=== PATIENT | female | born 1970 | race Caucasian/White ===

== ENCOUNTER 2017-11-15 04:36 | Emergency (ER) | payer SELFPAY ==
[2017-11-15] MEDS ORDERED: Acetaminophen/oxyCODONE 325-5 MG Tab PO ONE (04:37)
--- NOTE | 2017-11-15 05:35 | EDM.PDOC ---
ED HPI GENERAL MEDICAL PROBLEM - General Chief Complaint: Lower Extremity Injury/Pain Stated Complaint: INJURED L FOOT [id number] Time Seen by Provider: 11/15/17 05:00 Source of Information: Reports: Patient, RN, RN Notes Reviewed History Limitations: Reports: No Limitations - History of Present Illness INITIAL COMMENTS - FREE TEXT/NARRATIVE: Pt presents to the ER with c/o left ankle/foot pain. She states last night about 9-10pm she stood up out of a chair and her ankle went one way and her body went another. She states she has tried to take ibuprofen and rest but the pain has been too intense. 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 [No Known Home Meds] 11/15/17 [History] Past Medical History Cardiovascular History: Reports: Other (See Below) Other Cardiovascular History: Has valve problems. 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 ED EXAM, GENERAL - Physical Exam Exam: See Below Exam Limited By: No Limitations General Appearance: Alert, WD/WN, Mild Distress Eye Exam: Bilateral Eye: EOMI, Normal Inspection, PERRL Ears: Normal External Exam Nose: Normal Inspection Throat/Mouth: Normal Inspection, Normal Voice, No Airway Compromise Head: Atraumatic, Normocephalic Neck: Normal Inspection, Supple, Non-Tender, Full Range of Motion Respiratory/Chest: No Respiratory Distress, Lungs Clear, Normal Breath Sounds, No Accessory Muscle Use, Chest Non-Tender Cardiovascular: Normal Peripheral Pulses Peripheral Pulses: 2+: Radial (L), Radial (R), Dorsalis Pedis (L), Dorsalis Pedis (R) GI/Abdominal: Normal Bowel Sounds, Soft, Non-Tender, No Organomegaly, No Distention, No Abnormal Bruit, No Mass (Female) Exam: Deferred Rectal (Female) Exam: Deferred Back Exam: Normal Inspection, Full Range of Motion, NT Extremities: Normal Inspection, Normal Range of Motion, No Pedal Edema, Normal Capillary Refill, Joint Swelling (left ankle), Limited Range of Motion (left ankle/foot) Neurological: Alert, Oriented, CN II-XII Intact, Normal Cognition, Normal Gait, Normal Reflexes, No Motor/Sensory Deficits Psychiatric: Normal Affect, Normal Mood Skin Exam: Warm, Dry, Intact, Normal Color, No Rash Lymphatic: No Adenopathy ED TRAUMA EXTREMITY PROCEDURES - Splinting Left Lower Extremity Splint Site: left ankle Pre-Procedure NV Status: Normal Post-Procedure NV Status: Normal Splint Material: Air Splint Applied & Form Fitted By: Provider, Nurse Provider Post-Splint Application NV Check: NV Status Normal, Good Position Complications: No Course - Vital Signs Last Recorded V/S: Last Vital Signs Temp 97.4 F 11/15/17 04:42 Pulse 80 11/15/17 04:42 Resp 17 11/15/17 04:42 BP 142/90 H 11/15/17 04:42 Pulse Ox 100 11/15/17 04:42 - Orders/Labs/Meds Meds: Medications Discontinued Medications Generic Name Dose Route Start Last Admin Trade Name Frecortez PRN Reason Stop Dose Admin Hydrocodone Bitart/Acetaminophen Confirm 11/15/17 05:39 [place] 325-10 Mg Administered 11/15/17 05:40 Dose 1 tab .ROUTE .STK-MED ONE - Radiology Interpretation Free Text/Narrative:: Left Foot: IMPRESSION: No evidence for fracture or foreign body Prominent heel spur Thank you for allowing us to participate in the care of your patient. Dictated and Authenticated by: Russ Wooten MD 11/15/2017 5:19 AM Central Time ([place] & [place]) Left ankle: IMPRESSION: Normal left ankle x-rays. Thank you for allowing us to participate in the care of your patient. Dictated and Authenticated by: Russ Wooten MD 11/15/2017 5:19 AM Central Time ([place] & [place]) See rad report Departure - Departure Time of Disposition: 05:34 Disposition: Home, Self-Care 01 Condition: Fair Clinical Impression: Sprain of left ankle Qualifiers: Encounter type: initial encounter Involved ligament of ankle: unspecified ligament Qualified Code(s): S93.402A - Sprain of unspecified ligament of left ankle, initial encounter - Discharge Information Instructions: Crutch Use, Adult, [id number], Ankle Sprain, [id number], Pain Medicine Instructions, [id number] Forms: ED Department Discharge Additional Instructions: RX: [place] Elevate and ice as tolerated Use crutches and ankle brace as tolerated until pain is less Follow up with your primary care facility
[2017-11-15] MEDS ORDERED: Acetaminophen/HYDROcodone 325-10 MG Tab ONE (05:39)
[2017-11-15] MEDS ORDERED: Acetaminophen/oxyCODONE 325-5 MG Tab ONE (05:47)
== END 2017-11-15 05:55 | disposition home or self-care (01) ==
LOC: DL.ED 04:36
DX: S93.402A Sprain of unspecified ligament of left ankle, initial encounter (principal); F17.210 Nicotine dependence, cigarettes, uncomplicated; M76.892 Other specified enthesopathies of left lower limb, excluding foot; Z88.0 Allergy status to penicillin; Z88.1 Allergy status to other antibiotic agents; X50.9XXA Other and unspecified overexertion or strenuous movements or postures, initial encounter
CPT/HCPCS: 73610; 73630; 99283; A9270

== ENCOUNTER 2019-09-22 17:20 | Emergency (ER) | payer SELFPAY ==
[2019-09-22] MEDS ORDERED: Acetaminophen/oxyCODONE 325-5 MG Tab PO ONE (17:21)
[2019-09-22] MEDS ORDERED: Clindamycin HCl 150 MG Cap PO ONE (17:21)
[2019-09-22] MEDS ORDERED: Clindamycin Phosphate 900 MG in Sodium Chloride 0.9% 100 ML IV ONE (18:28)
[2019-09-22] MEDS ORDERED: Diphtheria,Pertussis(Acell),Tetanus Vaccine 0.5 ML SDV IM ONE (18:28)
[2019-09-22] MEDS ORDERED: Sodium Chloride 0.9% 10 ML Syringe FLUSH PRN (18:29)
[2019-09-22] MEDS ORDERED: Ondansetron 4 MG/2 ML SDV IVPUSH ONE (18:32)
[2019-09-22] MEDS ORDERED: Lidocaine 1% 30 ML SDV INJECT ONE (18:49)
[2019-09-22] MEDS ORDERED: Lidocaine 1% 30 ML SDV ONE (18:50)
[2019-09-22] MEDS ORDERED: fentaNYL 100 MCG/2 ML SDV IVPUSH ONE (19:12)
--- NOTE | 2019-09-22 19:25 | EDM.PDOC ---
Scribed by Malgorzata Carroll 09/22/19 191 for Micah Helton MD <Micah Helton - Last Filed: 09/22/19 19:13> ED HPI GENERAL MEDICAL PROBLEM - General Chief Complaint: Laceration Stated Complaint: LACERATION LEFT HAND Time Seen by Provider: 09/22/19 18:28 Source of Information: Reports: Patient, RN, RN Notes Reviewed History Limitations: Reports: No Limitations - History of Present Illness INITIAL COMMENTS - FREE TEXT/NARRATIVE: Pt presents to ER from home by POV with c/o a deep cut to the back of the left thumb and inability to extend the thumb. Denies any other injury. Pt was feeding a calf in the barn with a glass bottle with the calf butted the bottle, knocked into something that broke the glass and sliced her thumb. Tetanus not up to date. She is allergic to Penicillin and Zithromax. Onset: Today Duration: Constant, Other Location: Reports: Upper Extremity, Left Quality: Reports: Ache Severity: Moderate Improves with: Reports: None Worsens with: Reports: None Associated Symptoms: Reports: No Other Symptoms Left Finger-Thumb Pain Score (Numeric/FACES): 6 - Related Data Allergies Allergy/AdvReac Type Severity Reaction Status Date / Time azithromycin [From Zithromax] Allergy Tachycardia Verified 09/22/19 17:45 Penicillins Allergy Rash Verified 09/22/19 17:45 Home Meds: Home Meds . [No Known Home Meds] 11/15/17 [History] Past Medical History - Past Health History Medical/Surgical History: Denies Medical/Surgical History Cardiovascular History: Reports: Other (See Below) Other Cardiovascular History: Has valve problems. 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 ED EXAM, SKIN/RASH Exam: See Below Exam Limited By: No Limitations General Appearance: Alert, WD/WN, No Apparent Distress, Anxious Throat/Mouth: Normal Inspection, Normal Lips, Normal Voice, No Airway Compromise Head: Atraumatic, Normocephalic Respiratory/Chest: No Respiratory Distress Cardiovascular: Normal Peripheral Pulses Extremities: Normal Capillary Refill, Other (4cm laceration with extensor tendon lac. to the extensor surface of the left hand/thumb overlying the 1st MC , pt unable to extend the thumb, no FB, bleeding controlled.). No: Joint Swelling Neurological: Alert, Oriented, Normal Cognition, Normal Gait, No Motor/Sensory Deficits Psychiatric: Normal Affect, Anxious Course - Vital Signs Last Recorded V/S: Last Vital Signs Temp 96.8 F 09/22/19 17:41 Pulse 88 09/22/19 17:41 Resp 16 09/22/19 17:41 BP 146/76 H 09/22/19 17:41 Pulse Ox 100 09/22/19 17:41 - Orders/Labs/Meds Orders: Active Orders 24 hr Category Date Time Status Communication Order [RC] STAT Care 09/22/19 19:11 Active Peripheral IV Care [RC] . DIRECTED Care 09/22/19 18:29 Active Vaccines to be Administered [RC] PER UNIT ROUTINE Care 09/22/19 18:28 Active Sodium Chloride 0.9% [Saline Flush] Med 09/22/19 18:29 Active 10 ml FLUSH ASDIRECTED PRN Peripheral IV Insertion Adult [OM.PC] Stat Oth 09/22/19 18:29 Ordered Medication Orders Sodium Chloride (Saline Flush) 10 ml FLUSH ASDIRECTED PRN PRN Reason: Keep Vein Open Last Admin: 09/22/19 18:58 Dose: 10 ml Meds: Medications Generic Name Dose Route Start Last Admin Trade Name Freq PRN Reason Stop Dose Admin Sodium Chloride 10 ml 09/22/19 18:29 09/22/19 18:58 Saline Flush FLUSH 10 ml ASDIRECTED PRN Administration Keep Vein Open Discontinued Medications Generic Name Dose Route Start Last Admin Trade Name Freq PRN Reason Stop Dose Admin Clindamycin HCl Confirm 09/22/19 19:31 Cleocin Administered 09/22/19 19:32 Dose 300 mg .ROUTE .STK-MED ONE Diphtheria/Tetanus/Acell Pertussis 0.5 ml 09/22/19 18:28 09/22/19 18:57 Adacel IM 09/22/19 18:29 0.5 ml .ONCE ONE Administration Fentanyl 50 mcg 09/22/19 19:12 09/22/19 19:22 Sublimaze IVPUSH 09/22/19 19:13 50 mcg ONETIME ONE Administration Clindamycin Phosphate 900 mg/ 106 mls @ 200 mls/hr 09/22/19 18:28 09/22/19 18 :58 Sodium Chloride IV 09/22/19 18:59 200 mls/hr ONETIME ONE Administration Lidocaine HCl 30 ml 09/22/19 18:49 09/22/19 19:01 Xylocaine-Mpf 1% INJECT 09/22/19 18:50 30 ml ONETIME ONE Administration Lidocaine HCl Confirm 09/22/19 18:50 09/22/19 19:01 Xylocaine-Mpf 1% Administered 09/22/19 18:51 Not Given Dose 30 ml .ROUTE .STK-MED ONE Ondansetron HCl 4 mg 09/22/19 18:32 09/22/19 19:01 Zofran IVPUSH 09/22/19 18:33 4 mg ONETIME ONE Administration - Re-Assessments/Exams Free Text/Narrative Re-Assessment/Exam: 09/22/19 19:19 I consulted orthopedic surgeon, Dr. Mckeon via [facility]. Dr. Mckeon advises to irrigate and cleanse the wound, give appropriate antibiotics, Tdap, close the skin, splint the thumb, and have the pt f/u with him in clinic tomorrow, Monday, Sep.23. Wound care performed by Angelica CARTAGENA due to shift change and ER patient volume. Departure - Departure Time of Disposition: 20:00 Disposition: Home, Self-Care 01 Condition: Good Clinical Impression: Laceration of thumb, left, with tendon involvement Qualifiers: Encounter type: initial encounter Qualified Code(s): S61.012A - Laceration without foreign body of left thumb without damage to nail, initial encounter - Discharge Information *PRESCRIPTION DRUG MONITORING PROGRAM REVIEWED*: Not Applicable *COPY OF PRESCRIPTION DRUG MONITORING REPORT IN PATIENT EMBER: Not Applicable Instructions: Laceration Care, Adult, Tendon Repair Forms: ED Department Discharge Additional Instructions: Rx: Clindamycin 300mg 3 times daily x 10 days Call [phone] between 8:00 and 8:30 tomorrow morning to arrange a time to see Dr. Mckeon in at [facility] in [place] tomorrow. ([facility] on [facility]) elevate percocet 5/325 one every 6 hours as needed for severe pain tylenol 650mg every 4 hours as needed mild to moderate pain Sepsis Event Note - Evaluation Sepsis Screening Result: No Definite Risk - Focused Exam Vital Signs: Vital Signs Temp Pulse Resp BP Pulse Ox 09/22/19 17:41 96.8 F 88 16 146/76 H 100 Date Exam was Performed: 09/22/19 Time Exam was Performed: 19:13 - My Orders Last 24 Hours: My Active Orders 09/22/19 19:11 Communication Order [RC] STAT - Assessment/Plan Last 24 Hours: My Active Orders 09/22/19 19:11 Communication Order [RC] STAT <Angelica Bey - Last Filed: 09/22/19 20:31> ED SKIN PROCEDURES - Laceration/Wound Repair Left Proximal Digit - 1st (Thumb) Appearance: Superficial Distal NVT: Neuro & Vascular Intact, Other (tendon involvement) Anesthetic Type: Local Local Anesthesia - Lidocaine (Xylocaine): 1% Plain Local Anesthetic Volume: 5cc Skin Prep: Saline Saline Irrigation (cc's): 2,000 Exploration/Debridement/Repair: Wound Explored Closed with: Sutures Lac/Wound length In cm: 4 Suture Size: 4-0 # of Sutures: 4 Suture Type: Nylon, Interrupted Sterile Dressing Applied: Provider Tetanus Status Addressed: Yes Complications: No - Splinting Left Thumb Post-Procedure NV Status: Normal Splint Material: Velcro Splint Design: Thumb Spica Applied & Form Fitted By: Nurse Provider Post-Splint Application NV Check: NV Status Normal, Good Position Complications: No Departure - Departure Time of Disposition: 20:24 Sepsis Event Note - Focused Exam Date Exam was Performed: 09/22/19 Time Exam was Performed: 20:24 I have read and agree with the documentation that has been completed regarding this visit. By signing this record, I attest that the documentation was completed in my physical presence and is an accurate record of the encounter.
[2019-09-22] MEDS ORDERED: Clindamycin HCl 150 MG Cap ONE (19:31)
[2019-09-22] MEDS ORDERED: Acetaminophen/oxyCODONE 325-5 MG Tab ONE (20:25)
== END 2019-09-22 20:40 | disposition home or self-care (01) ==
LOC: DL.ED 17:20
DX: S66.222A Laceration of extensor muscle, fascia and tendon of left thumb at wrist and hand level, initial encounter (principal); F17.210 Nicotine dependence, cigarettes, uncomplicated; Z23 Encounter for immunization; Z88.0 Allergy status to penicillin; W25.XXXA Contact with sharp glass, initial encounter; Y93.K9 Activity, other involving animal care; Y92.71 Barn as the place of occurrence of the external cause
CPT/HCPCS: 12002; 90471; 90715; 96365; 96375; 99283; A9270; J2001; J2405; J3010; J3490; J7050

== ENCOUNTER 2020-08-22 20:31 | Emergency (ER) | payer MEDICAID ==
[2020-08-22] MEDS ORDERED: Fluconazole 100 MG Tab PO ONE (21:17)
--- NOTE | 2020-08-22 21:24 | EDM.PDOC ---
ED HPI GENERAL MEDICAL PROBLEM - General Chief Complaint: Skin Complaint Stated Complaint: LEFT LEG, SWOLLEN AND BRIGHT BIG BOIL OR SPOT Time Seen by Provider: 08/22/20 21:00 Source of Information: Reports: Patient, RN, RN Notes Reviewed History Limitations: Reports: No Limitations - History of Present Illness INITIAL COMMENTS - FREE TEXT/NARRATIVE: Pt is a 50 year old female who presents to ER with c/o irritating rash to the anterior lower legs bilaterally, as well as small spots forming on the arms. Patient states she has been dealing with the rash on the legs for months. She states she was seen in the clinic and "nothing was done". Patient admits to itching to the areas. Denies fever or chills. Onset: Gradual, Other (months) Treatments ACCESS SPEC: Reports: NSAIDS Left Lower Leg Pain Score (Numeric/FACES): 7 - Related Data Allergies Allergy/AdvReac Type Severity Reaction Status Date / Time azithromycin [From Zithromax] Allergy Tachycardia Verified 08/22/20 20:59 Penicillins Allergy Rash Verified 08/22/20 20:59 Home Meds: Home Meds Levothyroxine 25 mcg PO ACBREAKFAST 08/22/20 [History] Metoprolol Succinate [Toprol XL] 25 mg PO DAILY 08/22/20 [History] Rosuvastatin [Crestor] 5 mg PO DAILY 08/22/20 [History] Past Medical History - Past Health History Medical/Surgical History: Denies Medical/Surgical History Cardiovascular History: Reports: Other (See Below) Other Cardiovascular History: Has valve problems. 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 ED EXAM, SKIN/RASH Exam: See Below Exam Limited By: No Limitations General Appearance: Alert, WD/WN, No Apparent Distress Eye Exam: Bilateral Eye: EOMI, Normal Inspection Ears: Normal External Exam, Hearing Grossly Normal Nose: Normal Inspection Throat/Mouth: Normal Inspection, Normal Voice, No Airway Compromise Head: Atraumatic, Normocephalic Neck: Normal Inspection, Supple, Non-Tender, Full Range of Motion Respiratory/Chest: No Respiratory Distress Cardiovascular: Normal Peripheral Pulses, Regular Rate, Rhythm, No Edema, No Gallop, No JVD, No Murmur, No Rub Peripheral Pulses: 2+: Radial (L), Radial (R), Dorsalis Pedis (L), Dorsalis Pedis (R) GI/Abdominal: Normal Bowel Sounds, Soft, Non-Tender (Female) Exam: Deferred Rectal (Female) Exam: Deferred Back Exam: Normal Inspection, Full Range of Motion, NT Extremities: Redness (area to the left anterior/lateral calf of lef leg, anterior right [place] area, ) Neurological: Alert, Oriented, CN II-XII Intact, Normal Cognition, Normal Gait, Normal Reflexes, No Motor/Sensory Deficits Psychiatric: Normal Affect, Normal Mood Skin: Rash (tinea corporis appearing lesions to the lower legs as well as smaller annular areas to the lower arms bilaterally. Area to the left lower leg hs approximately 20cm x 10cm, scaling, erythematous. Area to the right lower leg has multiple annular appearing areas, with some having dried blood/scabs to the area which the patient states open up and bleed from time to time. Multiple annular lesions to the right and left lower arms. ) Location, Skin: Upper Extremity, Right, Upper Extremity, Left, Lower Extremity, Right, Lower Extremity, Left Characteristics: Other (annular) Associated features: Warmth, Tenderness, Scaling Lymphatic: No Adenopathy Course - Vital Signs Last Recorded V/S: Last Vital Signs Temp 96.9 F 08/22/20 20:37 Pulse 86 08/22/20 20:37 Resp 19 08/22/20 20:37 BP 145/93 H 08/22/20 20:37 Pulse Ox 96 08/22/20 20:37 - Orders/Labs/Meds Meds: Medications Discontinued Medications Generic Name Dose Route Start Last Admin Trade Name Freq PRN Reason Stop Dose Admin Fluconazole 100 mg 08/22/20 21:17 08/22/20 21:23 Diflucan PO 08/22/20 21:18 100 mg ONETIME ONE Administration Departure - Departure Time of Disposition: 21:23 Disposition: Home, Self-Care 01 Condition: Good Clinical Impression: Tinea corporis - Discharge Information *PRESCRIPTION DRUG MONITORING PROGRAM REVIEWED*: No *COPY OF PRESCRIPTION DRUG MONITORING REPORT IN PATIENT EMBER: No Instructions: Body Ringworm, Contact Dermatitis, [id number] Referrals: PCP,None [Primary Care Provider] - Forms: ED Department Discharge Additional Instructions: RX: Fluconizole, Lotrimin Ultra Follow up with your primary care facility if no improvement Sepsis Event Note (ED) - Evaluation Sepsis Screening Result: No Definite Risk - Focused Exam Vital Signs: Vital Signs Temp Pulse Resp BP Pulse Ox 08/22/20 20:37 96.9 F 86 19 145/93 H 96
== END 2020-08-22 21:30 | disposition home or self-care (01) ==
LOC: DL.ED 20:31
DX: B35.4 Tinea corporis (principal); E03.9 Hypothyroidism, unspecified; F17.210 Nicotine dependence, cigarettes, uncomplicated; Z88.1 Allergy status to other antibiotic agents; Z88.0 Allergy status to penicillin; Z79.899 Other long term (current) drug therapy
CPT/HCPCS: 99282; A9270; 99283

== ENCOUNTER 2020-12-18 16:14 | Emergency (ER) | payer MEDICAID ==
[2020-12-18] MEDS ORDERED: Acetaminophen/HYDROcodone 325-5 MG Tab PO ONE (16:15)
[2020-12-18] MEDS ORDERED: Acetaminophen/HYDROcodone 325-10 MG Tab PO ONE (17:20)
--- NOTE | 2020-12-18 18:23 | EDM.PDOC ---
"Scribed by Malgorzata Carroll 12/18/20 1822 for Agnes Helton MD <Agnes Helton - Last Filed: 12/18/20 18:52> ED HPI GENERAL MEDICAL PROBLEM - General Chief Complaint: Eye Problems Stated Complaint: RIGHT EYE PAIN CHRONIC Time Seen by Provider: 12/18/20 16:55 Source of Information: Reports: Patient, RN, RN Notes Reviewed History Limitations: Reports: No Limitations - History of Present Illness INITIAL COMMENTS - FREE TEXT/NARRATIVE: Patient presents to ED by POV stating that she has chronic pain to the right eye. The pain increased 3 days ago. Today states the pain has been the worse. Pt was seen in eye clinic 3 days ago and started on Latanoprost/Pf 0.005% eye drops for glaucoma. Patient states she is scheduled for cataract surgery February 03 and . She states that she has pressure to the eye. She called the Eye Clinic and it was closed. She states she was sent here by Patricia Edwards. Hx of thrombocytopenia, and has been referred to hematology. Onset: Gradual Duration: Constant, Getting Worse Location: Reports: Other (right eye) Severity: Severe Improves with: Reports: None Worsens with: Reports: None Associated Symptoms: Reports: No Other Symptoms Right Eye Pain Score (Numeric/FACES): 10 - Related Data Allergies Allergy/AdvReac Type Severity Reaction Status Date / Time azithromycin [From Zithromax] Allergy Tachycardia Verified 12/18/20 17:00 Penicillins Allergy Rash Verified 12/18/20 17:00 Home Meds: Home Meds Levothyroxine 12.5 mcg PO ACBREAKFAST 08/22/20 [History] Metoprolol Succinate [Toprol XL] 37.5 mg PO DAILY 08/22/20 [History] Rosuvastatin [Crestor] 5 mg PO DAILY 08/22/20 [History] Latanoprost/Pf [Latanoprost 0.005% Eye Drop] 1 drop EYEBOTH BEDTIME 12/18/20 [History] Pantoprazole [ProTONIX] 40 mg PO DAILY 12/18/20 [History] Past Medical History - Past Health History Medical/Surgical History: Denies Medical/Surgical History HEENT History: Reports: Cataract, Glaucoma, Impaired Vision Cardiovascular History: Reports: Other (See Below) Other Cardiovascular History: Has valve problems. 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 [employer] History: Reports: Endocrine/Metabolic History: Reports: Hypothyroidism Hematologic History: Reports: Idiopathic Thrombocytopenia - Infectious Disease History Infectious Disease History: Reports: Hepatitis A Social & Family History - Family History Family Medical History: No Pertinent Family History - Tobacco Use Tobacco Use Status *Q: Current Every Day Tobacco User Tobacco Use Within Last Twelve Months: Cigarettes - Caffeine Use Caffeine Use: Reports: None - Living Situation & Occupation Living situation: Reports: , with Family ED ROS GENERAL - Review of Systems Review Of Systems: Comprehensive ROS is negative, except as noted in HPI. ED EXAM GENERAL W FULL EYE - Physical Exam Exam: See Below Exam Limited By: No Limitations General Appearance: Alert, WD/WN, No Apparent Distress Eye Exam: Bilateral Eye: EOMI, PERRL Eyelids: Bilateral: Normal Appearance Conjunctiva & Sclera: Bilateral: Normal Appearance Cornea Exam: Bilateral: Normal Appearance Extraocular Movements: Bilateral: Intact Pupils: Normal Accommodation Pupillary Size: Bilateral: 3 mm Pupillary Reaction: Bilateral: Brisk Anterior Chamber: Bilateral: Normal Appearance Nose: Normal Inspection Throat/Mouth: Normal Inspection Head: Atraumatic, Normocephalic, Other (Tender overlying right temporal artery, no visible swelling or redness.) Neck: Normal Inspection, Supple, Non-Tender, Full Range of Motion Respiratory/Chest: No Respiratory Distress Cardiovascular: Regular Rate, Rhythm Extremities: Normal Inspection Neurological: Alert, Oriented, CN II-XII Intact, No Motor/Sensory Deficits Psychiatric: Normal Mood Skin Exam: Warm, Dry, Intact, Normal Color, No Rash Course - Re-Assessments/Exams Free Text/Narrative Re-Assessment/Exam: 12/18/20 18:52 Care of pt transferred to Niko CARTAGENA at 1900HR shift change. Departure - Departure Disposition: Home, Self-Care 01 Clinical Impression: Glaucoma (increased eye pressure) Qualifiers: Glaucoma type: unspecified Laterality: right Qualified Code(s): H40.9 - Unspecified glaucoma - Discharge Information Instructions: Glaucoma, [id number] Forms: ED Department Discharge Care Plan Goals: The patient was advised of the examination and CT results during the visit. The patient was given an oral dose of Yale (10/325) while in the ED. The patient was discharged with Yale (5/325) #2 to take 1 by mouth every 6 hours as needed for pain and a script for Yale () #12 to take 1 by mouth every 6 hours as needed for pain. The patient was encouraged to follow-up with her eye clinic on Monday for continued evaluation and further management. If the patient has any additional symptoms or concerns, the patient should either return to the emergency department or visit her primary care facility. <Niko Thomas M - Last Filed: 12/18/20 20:48> Course - Vital Signs Last Recorded V/S: Last Vital Signs Temp 36.6 C 12/18/20 16:55 Pulse 76 12/18/20 16:55 Resp 16 12/18/20 16:55 BP 133/72 12/18/20 16:55 Pulse Ox 99 12/18/20 16:55 - Orders/Labs/Meds Labs: Laboratory Tests 12/18/20 12/18/20 Range/Units 17:58 17:58 WBC 3.9 L (5.0-10.0) 10^3/uL RBC 3.50 L (4.2-5.4) 10^6/uL Hgb 12.1 (12.0-16.0) g/dL Hct 34.7 L (37.0-47.0) % MCV 99.1 (80-100) fL MCH 34.6 H (27.0-34.0) pg MCHC 34.9 (33.0-35.0) g/dL Plt Count 36 L* (150-450) 10^3/uL Neut % (Auto) 49.5 (42.2-75.2) % Lymph % (Auto) 36.7 (20.5-50.1) % [place] % (Auto) 10.5 H (2-8) % Eos % (Auto) 2.3 (1.0-3.0) % Baso % (Auto) 1.0 (0.0-1.0) % Sodium 137 (136-145) mmol/L Potassium 3.2 L (3.5-5.1) mmol/L Chloride 96 L (98-107) mmol/L Carbon Dioxide 29 (21-32) mmol/L Anion Gap 15.2 H (7-13) mEq/L BUN 4 L (7-18) mg/dL Creatinine 0.65 (0.55-1.02) mg/dL Est Cr Clr Drug Dosing 94.00 mL/min Estimated GFR (MDRD) > 60 BUN/Creatinine Ratio 6.2 (No establ ref range) Glucose 80 (70-99) mg/dL Calcium 8.4 L (8.5-10.1) mg/dL Total Bilirubin 0.7 (0.2-1.0) mg/dL AST 138 H (15-37) U/L ALT 54 (14-59) U/L Alkaline Phosphatase 78 (46-116) U/L C-Reactive Protein < 0.2 (0.0-0.9) mg/dL Total Protein 7.8 (6.4-8.2) g/dL Albumin 3.7 (3.4-5.0) g/dL Globulin 4.1 Albumin/Globulin Ratio 0.9 Meds: Medications Discontinued Medications Generic Name Dose Route Start Last Admin Trade Name Freq PRN Reason Stop Dose Admin Hydrocodone Bitart/Acetaminophen 1 tab 12/18/20 17:20 12/18/20 17:32 Acetaminophen/Hydrocodone 325-10 Mg Tab PO 12/18/20 17:21 1 tab ONETIME ONE Administration - Radiology Interpretation Free Text/Narrative:: [facility] Final Radiology Report Call: [phone] assistance Online chat: [email or web address] Name: NICOLE GILLIAM Age: 50Years F Date: 12/18/2020 SSN: -- : [id number] Study: CT HEAD WO CONT Requesting Physician: AGNES HELTON Images: 147 Addl Studies: Provided Clinical History: Right eye pain, right temporal/frontal headache Contrast: Without Contrast Medium: Contrast Amount: Contrast Method: Page 1 of 2 PROCEDURE INFORMATION: Exam: CT Head Without Contrast Exam date and time: 12/18/2020 6:59 PM Age: 50 years old Clinical indication: Other: Right eye pressure; Additional info: Right eye pain, right temporal/frontal headache TECHNIQUE: Imaging protocol: Computed tomography of the head without contrast. Radiation optimization: All CT scans at this facility use at least one of these dose optimization techniques: automated exposure control; mA and/or kV adjustment per patient size (includes targeted exams where dose is matched to clinical indication); or iterative reconstruction. COMPARISON: No relevant prior studies available. FINDINGS: Brain: There is mild diffuse cerebellar atrophy. Mild diffuse cerebral atrophy. Cerebral ventricles: The degree of ventricular dilatation is normal for age and/or degree of atrophy present. Bones/joints: Unremarkable. No acute fracture. Paranasal sinuses: Visualized sinuses are unremarkable. No fluid levels. Mastoid air cells: Visualized mastoid air cells are well aerated. Soft tissues: Unremarkable. IMPRESSION: 1. There is mild diffuse cerebellar atrophy. 2. The degree of ventricular dilatation is normal for age and/or degree of atrophy present. 3. No acute intracranial findings. NICOLE GILLIAM | Final Radiology Report CONFIDENTIALITY STATEMENT This report is intended only for use by the referring physician, and only in accordance with law. If you received this in error, call [phone]. Page 2 of 2 Thank you for allowing us to participate in the care of your patient. Dictated and Authenticated by: Kurt Maravilla MD 12/18/2020 7:11 PM Central Time ([place] & [place]) Departure - Departure Time of Disposition: 20:45 Condition: Fair - Discharge Information *PRESCRIPTION DRUG MONITORING PROGRAM REVIEWED*: Not Applicable *COPY OF PRESCRIPTION DRUG MONITORING REPORT IN PATIENT EMBER: Not Applicable Sepsis Event Note (ED) - Focused Exam Vital Signs: Vital Signs Temp Pulse Resp BP Pulse Ox 12/18/20 16:55 36.6 C 76 16 133/72 99 I have read and agree with the documentation that has been completed regarding this visit. By signing this record, I attest that the documentation was completed in my physical presence and is an accurate record of the encounter."
[2020-12-18 18:28] LABS: ANION GAP 15.2 mEq/L (7-13); CHLORIDE,CL 96 mmol/L (98-107); SODIUM,NA 137 mmol/L (136-145)
--- NOTE | 2020-12-18 19:12 | CT ---
PROCEDURE INFORMATION: Exam: CT Head Without Contrast Exam date and time: 12/18/2020 6:59 PM Age: 50 years old Clinical indication: Other: Right eye pressure; Additional info: Right eye pain, right temporal/frontal headache TECHNIQUE: Imaging protocol: Computed tomography of the head without contrast. Radiation optimization: All CT scans at this facility use at least one of these dose optimization techniques: automated exposure control; mA and/or kV adjustment per patient size (includes targeted exams where dose is matched to clinical indication); or iterative reconstruction. COMPARISON: No relevant prior studies available. FINDINGS: Brain: There is mild diffuse cerebellar atrophy. Mild diffuse cerebral atrophy. Cerebral ventricles: The degree of ventricular dilatation is normal for age and/or degree of atrophy present. Bones/joints: Unremarkable. No acute fracture. Paranasal sinuses: Visualized sinuses are unremarkable. No fluid levels. Mastoid air cells: Visualized mastoid air cells are well aerated. Soft tissues: Unremarkable. IMPRESSION: 1. There is mild diffuse cerebellar atrophy. 2. The degree of ventricular dilatation is normal for age and/or degree of atrophy present. 3. No acute intracranial findings.
[2020-12-18] MEDS ORDERED: Acetaminophen/HYDROcodone 325-5 MG Tab ONE (20:52)
== END 2020-12-18 20:56 | disposition home or self-care (01) ==
LOC: DL.ED 16:14
DX: H40.9 Unspecified glaucoma (principal); E03.9 Hypothyroidism, unspecified; Z88.1 Allergy status to other antibiotic agents; Z88.0 Allergy status to penicillin; Z79.899 Other long term (current) drug therapy; Z72.0 Tobacco use
CPT/HCPCS: 36415; 70450; 80053; 85025; 86140; 99284; A9270; 99283

== ENCOUNTER 2021-02-03 06:36 | Day surgery (SDC) | payer MEDICAID ==
[~2021-02-03 06:36] MED LIST: Acetaminophen 325 MG Tab PO PRN; Acetaminophen/Codeine 300-30 MG Tab PO PRN; Moxifloxacin 0.5% Ophth Soln 3 ML Bottle EYERT ONE; Ondansetron 4 MG/2 ML SDV IVPUSH PRN; Phenylephrine 10% Ophth Soln 5 ML Bot EYERT ONE; Povidone-Iodine 5% Sterile Ophth Soln 30 ML Bottle EYERT ONE; Proparacaine 0.5% Ophth Soln 15 ML Bottle EYERT ONE; Proparacaine 0.5% Ophth Soln 15 ML Bottle ONE; Sodium Chloride 0.9% 10 ML Syringe FLUSH PRN; Timolol Maleate 0.5% Ophth Soln 5 ML Bottle EYERT ONE; Tropicamide 1% Ophth Soln 15 ML Bottle EYERT ONE
[2021-02-03] MEDS ORDERED: Sodium Chloride 0.9% 10 ML Syringe IV ONE (06:37)
[2021-02-03] MEDS ORDERED: Midazolam 1 MG/ML 2 ML SDV IV ONE (06:37)
[2021-02-03] MEDS ORDERED: Dexamethasone 4 MG/ML SDV IV ONE (06:37)
[2021-02-03] MEDS ORDERED: Tetracaine HCl/PF 0.5% 4 ML Bottle EYERT ONE (08:01)
[2021-02-03] MEDS ORDERED: Diclofenac Sodium 0.1% Ophth Soln 5 ML Bottle EYERT ONE (08:02)
[2021-02-03] MEDS ORDERED: Lidocaine 1% 30 ML SDV ONE (08:02)
[2021-02-03] MEDS ORDERED: Povidone-Iodine 5% Sterile Ophth Soln 30 ML Bottle EYERT ONE (08:02)
[2021-02-03] MEDS ORDERED: Dexamethasone/Neomycin/Polymyxin B Ophth Oint 3.5 GM Tube EYERT ONE (08:02)
[2021-02-03] MEDS ORDERED: Apraclonidine 0.5% Ophth Soln 5 ML Bot EYERT ONE (08:02)
[2021-02-03] MEDS ORDERED: Vancomycin 500 MG SDV ONE (08:03)
[2021-02-03] MEDS ORDERED: Balanced Salt Solution Ophth Irrig 500 ML Bottle IOCULAR ONE (08:03)
[2021-02-03] MEDS ORDERED: Chondroitin Sulfate/Hyaluronate Sodium Ophth Inj 0.75 ML Syringe EYERT ONE (08:04)
--- NOTE | 2021-02-03 12:23 | OR ---
DATE: 02/03/2021 PREOPERATIVE DIAGNOSES: 1. Visually significant mixed cataract, right eye. 2. Primary open angle glaucoma, right eye. POSTOPERATIVE DIAGNOSES: 1. Visually significant mixed cataract, right eye. 2. Primary open angle glaucoma, right eye. PROCEDURES: 1. Extracapsular cataract extraction with intraocular lens implant. 2. Placement of iStent for glaucoma control. SURGEON: Gonzalo Lan MD ANESTHESIA: Local MAC. INDICATION: Ms. Tirado was seen in the clinic. She has complained of difficulty seeing books, difficulty driving, difficulty seeing street signs, difficulty with bright lights and glare. Examination revealed visually significant mixed cataract and mild primary open-angle glaucoma. I explained the options, offered cataract surgery, and I explained risks including, but not limited to, infection, retinal detachment, loss of vision, need for additional surgery, and risks associated with anesthesia. We discussed implant options. I recommended a monofocal implant. I recommended surgery with the iStent. She voiced understanding with respect to risks and limitations. She understands that she will likely need glasses for some activities, especially near work following surgery. She is very motivated to proceed. OPERATIVE DESCRIPTION: The patient was prepped and draped in a sterile fashion and topical anesthesia was applied. Attention was placed on the operative eye. A sterile lid speculum was placed to allow operative exposure. Paracentesis was made temporal. Intracameral lidocaine was administered. Viscoelastic was injected. A full-thickness corneal incision was made using the trapezoidal blade. Bent needle cystotome was then used to make a small marino in the anterior capsule and a 360-degree curvilinear capsulorrhexis was created. Nucleus was then hydrodissected and hydrodelineated using balanced saline solution. Nucleus was then decompressed centrally and rotated and noted to be free of adhesions. Nucleus was then removed using the phacoemulsification handpiece. Additional viscoelastic was then injected into the capsular bag and the intraocular lens was inserted into the capsular bag. The iStent portion of the procedure was then performed. Following removal of the nucleus and cortex, the irrigation and aspiration handpiece was inserted to remove viscoelastic from the posterior surface of the IOL. Additional viscoelastic was then inserted into the anterior chamber angle directly opposite the corneal incision. Miochol was injected into the nasal iris to promote pupillary contraction. The patient's head was then rotated 35 degrees away from the initial position. The operating microscope was also rotated 35 degrees to achieve the proper orientation. The gonioprism was then placed onto the eye. The iStent was then inserted into the anterior chamber with the right hand and the stent was introduced into the pigmented trabecular meshwork. The stent was advanced beneath the trabecular meshwork until approximately two-thirds of the body was covered and then the stent was released from the insertion device. The stent was then tapped into its final resting position using the insertion device. The device was then reinspected to ensure that it was securely in position. The viscoelastic was aspirated from the anterior chamber. Wound and paracentesis sites were hydrated using balanced saline solution. Vancomycin 0.1 mL was injected into the anterior chamber. Intraocular lens was inspected and noted to be clear and well centered. Postoperative drops were placed and a sterile eye patch and shield were placed over the operative eye. The patient was then transported to the postoperative recovery area having tolerated the procedure well. No complications occurred. [facility] /[id number]
== END 2021-02-03 09:15 | disposition home or self-care (01) ==
LOC: DL.SDS 06:36
PROVIDERS: ATTEND Ophthalmology
DX: H40.1111 Primary open-angle glaucoma, right eye, mild stage (principal); H26.8 Other specified cataract; E03.9 Hypothyroidism, unspecified; D69.6 Thrombocytopenia, unspecified; F17.210 Nicotine dependence, cigarettes, uncomplicated; Z88.0 Allergy status to penicillin; Z88.8 Allergy status to other drugs, medicaments and biological substances; Z79.899 Other long term (current) drug therapy; Z98.890 Other specified postprocedural states
CPT/HCPCS: 0191T; 66984; A9270; C1783; J1100; J2250; J3370; V2632

== ENCOUNTER 2021-02-10 06:33 | Day surgery (SDC) | payer MEDICAID ==
[~2021-02-10 06:33] MED LIST changes: +Cataract Ophth Solution EYELF ONE; +Moxifloxacin 0.5% Ophth Soln 3 ML Bottle EYELF ONE; -Moxifloxacin 0.5% Ophth Soln 3 ML Bottle EYERT ONE; +Phenylephrine 10% Ophth Soln 5 ML Bot EYELF ONE; -Phenylephrine 10% Ophth Soln 5 ML Bot EYERT ONE; +Povidone-Iodine 5% Sterile Ophth Soln 30 ML Bottle EYELF ONE; -Povidone-Iodine 5% Sterile Ophth Soln 30 ML Bottle EYERT ONE; +Proparacaine 0.5% Ophth Soln 15 ML Bottle EYELF ONE; -Proparacaine 0.5% Ophth Soln 15 ML Bottle EYERT ONE; -Proparacaine 0.5% Ophth Soln 15 ML Bottle ONE; +Timolol Maleate 0.5% Ophth Soln 5 ML Bottle EYELF ONE; -Timolol Maleate 0.5% Ophth Soln 5 ML Bottle EYERT ONE; +Tropicamide 1% Ophth Soln 15 ML Bottle EYELF ONE; -Tropicamide 1% Ophth Soln 15 ML Bottle EYERT ONE
[2021-02-10] MEDS ORDERED: Sodium Chloride 0.9% 10 ML Syringe IV ONE (06:34)
[2021-02-10] MEDS ORDERED: Midazolam 1 MG/ML 2 ML SDV IV ONE (06:34)
[2021-02-10] MEDS ORDERED: Dexamethasone 4 MG/ML SDV IV ONE (06:34)
[2021-02-10] MEDS ORDERED: Tetracaine HCl/PF 0.5% 4 ML Bottle EYELF ONE (07:53)
[2021-02-10] MEDS ORDERED: Povidone-Iodine 5% Sterile Ophth Soln 30 ML Bottle EYELF ONE (07:53)
[2021-02-10] MEDS ORDERED: Apraclonidine 0.5% Ophth Soln 5 ML Bot EYELF ONE (07:54)
[2021-02-10] MEDS ORDERED: Diclofenac Sodium 0.1% Ophth Soln 5 ML Bottle EYELF ONE (07:54)
[2021-02-10] MEDS ORDERED: Lidocaine 1% 30 ML SDV ONE (07:54)
[2021-02-10] MEDS ORDERED: Dexamethasone/Neomycin/Polymyxin B Ophth Oint 3.5 GM Tube EYELF ONE (07:54)
[2021-02-10] MEDS ORDERED: Balanced Salt Solution Ophth Irrig 500 ML Bottle IOCULAR ONE (07:55)
[2021-02-10] MEDS ORDERED: Chondroitin Sulfate/Hyaluronate Sodium Ophth Inj 0.75 ML Syringe EYELF ONE (07:55)
[2021-02-10] MEDS ORDERED: Vancomycin 500 MG SDV ONE (07:55)
[2021-02-10] MEDS ORDERED: Acetylcholine 20 MG/2 ML Intraocular Inj Kit EYELF ONE (08:01)
[2021-02-10] MEDS ORDERED: Chondroitin Sulfate/Hyaluronate Sodium Ophth Inj 0.5 ML Syringe IOCULAR ONE (08:01)
--- NOTE | 2021-02-10 14:05 | OR ---
DATE: 02/10/2021 PREOPERATIVE DIAGNOSES: 1. Visually significant cataract, left eye. 2. Primary open angle glaucoma, left eye. POSTOPERATIVE DIAGNOSES: 1. Visually significant cataract, left eye. 2. Primary open angle glaucoma, left eye. PROCEDURES: 1. Extracapsular cataract extraction with intraocular lens implant. 2. Placement of iStent for glaucoma control. SURGEON: Gonzalo Lan MD ANESTHESIA: Local MAC. INDICATION: Ms. Tirado was seen in the clinic. Examination revealed visually significant cataract. She was referred by her regular extender, Dr. Saucedo. Dr. Saucedo was not able to improve her vision with a change in glasses. She has difficulty seeing books, difficulty driving, difficulty with night driving, difficulty with glare, difficulty with starbursts. I explained options, offered cataract surgery, and I explained risks including the potential for infection, retinal detachment, loss of vision, need for additional surgery, and risks associated with anesthesia. We discussed implant options. She has requested a monofocal implant. She has a history of mild primary open-angle glaucoma and I recommended surgery with the iStent. OPERATIVE DESCRIPTION: The patient was prepped and draped in a sterile fashion and topical anesthesia was applied. Attention was placed on the operative eye. A sterile lid speculum was placed to allow operative exposure. Paracentesis was made temporal. Intracameral lidocaine was administered. Viscoelastic was injected. A full-thickness corneal incision was made using the trapezoidal blade. Bent needle cystotome was then used to make a small marino in the anterior capsule and a 360-degree curvilinear capsulorrhexis was created. Nucleus was then hydrodissected and hydrodelinated using balanced saline solution. Nucleus was then decompressed centrally and rotated and noted to be free of adhesions. Nucleus was then removed using the phacoemulsification handpiece. Additional viscoelastic was then injected into the capsular bag and the intraocular lens was inserted into the capsular bag. The iStent portion of the procedure was then performed. Following removal of the nucleus and cortex, the irrigation and aspiration handpiece was inserted to remove viscoelastic from the posterior surface of the IOL. Additional viscoelastic was then inserted into the anterior chamber angle directly opposite the corneal incision. Miochol was injected into the nasal iris to promote pupillary contraction. The patient's head was then rotated 35 degrees away from the initial position. The operating microscope was also rotated 35 degrees to achieve the proper orientation. The gonioprism was then placed onto the eye. The iStent was then inserted into the anterior chamber with the right hand and the stent was introduced into the pigmented trabecular meshwork. The stent was advanced beneath the trabecular meshwork until approximately two-thirds of the body was covered and then the stent was released from the insertion device. The stent was then tapped into its final resting position using the insertion device. The device was then reinspected to ensure that it was securely in position. The viscoelastic was aspirated from the anterior chamber. Wound and paracentesis sites were hydrated using balanced saline solution. Vancomycin 0.1 mL was injected into the anterior chamber. Intraocular lens was inspected and noted to be clear and well centered. Postoperative drops were placed and a sterile eye patch and shield were placed over the operative eye. The patient was then transported to the postoperative recovery area having tolerated the procedure well. No complications occurred. [facility] /[id number]
== END 2021-02-10 09:08 | disposition home or self-care (01) ==
LOC: DL.SDS 06:33
PROVIDERS: ATTEND Ophthalmology
DX: H40.1121 Primary open-angle glaucoma, left eye, mild stage (principal); H26.9 Unspecified cataract; E03.9 Hypothyroidism, unspecified; D69.6 Thrombocytopenia, unspecified; F17.210 Nicotine dependence, cigarettes, uncomplicated; Z98.890 Other specified postprocedural states; Z88.0 Allergy status to penicillin; Z88.1 Allergy status to other antibiotic agents; Z79.899 Other long term (current) drug therapy; Z79.890 Hormone replacement therapy
CPT/HCPCS: 00142; 0191T; 66984; A9270; C1783; J1100; J2250; J3370; V2632

== ENCOUNTER 2021-02-27 23:26 | Emergency (ER) | payer MEDICAID ==
[2021-02-28 00:36] LABS: ANION GAP 17.7 mEq/L (7-13); CHLORIDE,CL 91 mmol/L (98-107); SODIUM,NA 126 mmol/L (136-145)
--- NOTE | 2021-02-28 01:25 | EDM.PDOC ---
ED HPI GENERAL MEDICAL PROBLEM - General Chief Complaint: Bite:Animal, Insect Stated Complaint: BIT BY CAT, INFECTED, ARM BLACK Time Seen by Provider: 02/28/21 00:05 Source of Information: Reports: Patient, RN History Limitations: Reports: No Limitations - History of Present Illness INITIAL COMMENTS - FREE TEXT/NARRATIVE: ED with c/o redness to left arm concern for infection from catbite. Has been seen at clinic on bactrim and keflex. Admits daily ETOH and low platelts. Reported initially recommended hospitalization for bite and declined. Bite from barn cat. no fever or chills. - Related Data Allergies Allergy/AdvReac Type Severity Reaction Status Date / Time azithromycin [From Zithromax] Allergy Tachycardia Verified 02/28/21 00:03 Penicillins Allergy Rash Verified 02/28/21 00:03 Home Meds: Home Meds Levothyroxine 25 mcg PO ACBREAKFAST 08/22/20 [History] Metoprolol Succinate [Toprol XL] 37.5 mg PO DAILY 08/22/20 [History] Rosuvastatin [Crestor] 5 mg PO DAILY 08/22/20 [History] Latanoprost/Pf [Latanoprost 0.005% Eye Drop] 1 drop EYEBOTH BEDTIME 12/18/20 [History] Pantoprazole [ProTONIX] 40 mg PO DAILY 12/18/20 [History] Calcium Carbonate [Calcium] 500 mg PO DAILY 01/29/21 [History] Ketorolac [Acular 0.5% Ophth Soln] 1 drop EYEBOTH ASDIRECTED 01/29/21 [History] Ofloxacin [Ocuflox 0.3% Ophth Soln] 1 drop EYEBOTH ASDIRECTED 01/29/21 [History] Potassium Chloride [Klor-Con] 20 meq PO DAILY 01/29/21 [History] prednisoLONE Acetate [Prednisolone Acetate] 1 drop EYELF ASDIRECTED 01/29/21 [History] Mupirocin Oint [Bactroban Oint] 1 TOP TID 02/28/21 [History] Sulfamethoxazole/Trimethoprim [Sulfamethoxazole-Tmp Ds Tablet] 1 tab PO BID 02/28/21 [History] Past Medical History - Past Health History Medical/Surgical History: Denies Medical/Surgical History HEENT History: Reports: Cataract, Glaucoma, Impaired Vision Cardiovascular History: Reports: Blood Clots/VTE/DVT, Other (See Below) Other Cardiovascular History: Has valve problems. 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 CLOSED FRACTURE OF DISTAL END OF LEFT ULNA WITH ROUTINE HEALING SUBSEQUENT ENCOUNTER. LATERAL EPICONDYLITIS OF LEFT ELBOW Neurological History: Reports: None Psychiatric History: Reports: Other (See Below) Other Psychiatric History: HX OF ALCOHOL ABUSE Endocrine/Metabolic History: Reports: Hypothyroidism Hematologic History: Reports: Idiopathic Thrombocytopenia Immunologic History: Reports: None Oncologic (Cancer) History: Reports: None Dermatologic History: Reports: None - Infectious Disease History Infectious Disease History: Reports: Chicken Pox, Hepatitis A - Past Surgical History Head Surgeries/Procedures: Reports: None HEENT Surgical History: Reports: Cataract Surgery Cardiovascular Surgical History: Reports: Other (See Below) Other Cardiovascular Surgeries/Procedures: 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, L) lung) Respiratory Surgical History: Reports: None GI Surgical History: Reports: None Female Surgical History: Reports: None Endocrine Surgical History: Reports: None Neurological Surgical History: Reports: None Musculoskeletal Surgical History: Reports: Other (See Below) Other Musculoskeletal Surgeries/Procedures:: HX OF HAND AND TENDON SURGERY Oncologic Surgical History: Reports: None Dermatological Surgical History: Reports: None Social & Family History - Family History Family Medical History: No Pertinent Family History - Tobacco Use Tobacco Use Status *Q: Current Every Day Tobacco User Years of Tobacco use: 35 Packs/Tins Daily: 0.5 - Caffeine Use Caffeine Use: Reports: None - Alcohol Use Days Per Week of Alcohol Use: 7 Number of Drinks Per Day: 10 Total Drinks Per Week: 70 - Recreational Drug Use Recreational Drug Use: No - Living Situation & Occupation Living situation: Reports: , with Family ED ROS GENERAL - Review of Systems Review Of Systems: Comprehensive ROS is negative, except as noted in HPI. ED EXAM, ANIMAL BITE - Physical Exam Exam: See Below Exam Limited By: No Limitations General Appearance: Alert, Anxious, Thin Eye Exam: Bilateral Eye: EOMI Ears: Normal External Exam, Hearing Grossly Normal Throat/Mouth: Normal Inspection Head: Atraumatic, Normocephalic Neck: Normal Inspection Respiratory/Chest: No Respiratory Distress, Lungs Clear Cardiovascular: Regular Rate, Rhythm Extremities: Limited Range of Motion (mild with flexion left wrist). No: Joint Swelling Neurological: Alert, Oriented, Normal Cognition, No Motor/Sensory Deficits Psychiatric: Anxious Skin Exam: Ecchymosis, Other (multiple bruised left arm various stages, multiple puncture sites back of left hand wrist and lower forearm no errythema, no warmth no swelling, reddish brown bruise proximal forearm below elbow. , area markated.) Course - Vital Signs Last Recorded V/S: Last Vital Signs Temp 97.2 F 02/27/21 23:47 Pulse 71 02/27/21 23:47 Resp 16 02/27/21 23:47 BP 156/90 H 02/27/21 23:47 Pulse Ox 100 02/27/21 23:47 - Orders/Labs/Meds Labs: Laboratory Tests 02/27/21 02/27/21 02/27/21 Range/Units 23:55 23:55 23:55 WBC 4.3 L (5.0-10.0) 10^3/uL RBC 3.61 L (4.2-5.4) 10^6/uL Hgb 12.4 (12.0-16.0) g/dL Hct 34.9 L (37.0-47.0) % MCV 96.7 (80-100) fL MCH 34.3 H (27.0-34.0) pg MCHC 35.5 H (33.0-35.0) g/dL Plt Count 30 L* (150-450) 10^3/uL Neut % (Auto) 41.8 L (42.2-75.2) % Lymph % (Auto) 44.0 (20.5-50.1) % [place] % (Auto) 11.3 H (2-8) % Eos % (Auto) 2.4 (1.0-3.0) % Baso % (Auto) 0.5 (0.0-1.0) % PT 11.3 (9.0-12.0) SEC INR 1.1 (0.9-1.2) Sodium 126 L D (136-145) mmol/L Potassium 3.7 (3.5-5.1) mmol/L Chloride 91 L (98-107) mmol/L Carbon Dioxide 21 (21-32) mmol/L Anion Gap 17.7 H (7-13) mEq/L BUN 4 L (7-18) mg/dL Creatinine 0.61 (0.55-1.02) mg/dL Est Cr Clr Drug Dosing 98.18 mL/min Estimated GFR (MDRD) > 60 BUN/Creatinine Ratio 6.6 (No establ ref range) Glucose 88 (70-99) mg/dL Lactic Acid (0.4-2.0) mmol/L Calcium 8.5 (8.5-10.1) mg/dL Total Bilirubin 1.0 (0.2-1.0) mg/dL AST 104 H (15-37) U/L ALT 37 (14-59) U/L Alkaline Phosphatase 87 (46-116) U/L Total Protein 7.9 (6.4-8.2) g/dL Albumin 3.6 (3.4-5.0) g/dL Globulin 4.3 Albumin/Globulin Ratio 0.8 Ethyl Alcohol (0) mg/dL 02/27/21 02/27/21 Range/Units 23:55 23:55 WBC (5.0-10.0) 10^3/uL RBC (4.2-5.4) 10^6/uL Hgb (12.0-16.0) g/dL Hct (37.0-47.0) % MCV (80-100) fL MCH (27.0-34.0) pg MCHC (33.0-35.0) g/dL Plt Count (150-450) 10^3/uL Neut % (Auto) (42.2-75.2) % Lymph % (Auto) (20.5-50.1) % [place] % (Auto) (2-8) % Eos % (Auto) (1.0-3.0) % Baso % (Auto) (0.0-1.0) % PT (9.0-12.0) SEC INR (0.9-1.2) Sodium (136-145) mmol/L Potassium (3.5-5.1) mmol/L Chloride (98-107) mmol/L Carbon Dioxide (21-32) mmol/L Anion Gap (7-13) mEq/L BUN (7-18) mg/dL Creatinine (0.55-1.02) mg/dL Est Cr Clr Drug Dosing mL/min Estimated GFR (MDRD) BUN/Creatinine Ratio (No establ ref range) Glucose (70-99) mg/dL Lactic Acid 1.4 (0.4-2.0) mmol/L Calcium (8.5-10.1) mg/dL Total Bilirubin (0.2-1.0) mg/dL AST (15-37) U/L ALT (14-59) U/L Alkaline Phosphatase (46-116) U/L Total Protein (6.4-8.2) g/dL Albumin (3.4-5.0) g/dL Globulin Albumin/Globulin Ratio Ethyl Alcohol 291 (0) mg/dL Departure - Departure Time of Disposition: 01:21 Disposition: Home, Self-Care 01 Condition: Good Clinical Impression: Cat bite involving extremity, Thrombocytopenia, Hyponatremia - Discharge Information *PRESCRIPTION DRUG MONITORING PROGRAM REVIEWED*: No *COPY OF PRESCRIPTION DRUG MONITORING REPORT IN PATIENT EMBER: No Instructions: Animal Bite, Adult, [id number] Forms: ED Department Discharge Additional Instructions: Continue antibiotics recheck clinic Monday continue monitoring for redness swelling or any drainage from wounds Sepsis Event Note (ED) - Evaluation Sepsis Screening Result: No Definite Risk - Focused Exam Vital Signs: Vital Signs Temp Pulse Resp BP Pulse Ox 02/27/21 23:47 97.2 F 71 16 156/90 H 100
== END 2021-02-28 01:25 | disposition home or self-care (01) ==
LOC: DL.ED 23:26
DX: S61.552A Open bite of left wrist, initial encounter (principal); S51.852A Open bite of left forearm, initial encounter; D69.6 Thrombocytopenia, unspecified; E87.1 Hypo-osmolality and hyponatremia; K21.9 Gastro-esophageal reflux disease without esophagitis; E03.9 Hypothyroidism, unspecified; Z72.0 Tobacco use; Z79.899 Other long term (current) drug therapy; Z88.1 Allergy status to other antibiotic agents; Z88.0 Allergy status to penicillin; W55.01XA Bitten by cat, initial encounter
CPT/HCPCS: 36415; 80053; 80307; 83605; 85025; 85610; 99283

== ENCOUNTER 2021-05-02 22:29 | Emergency (ER) | payer MEDICAID ==
[2021-05-02] MEDS ORDERED: Phenazopyridine 95 MG Tab PO ONE (22:30)
[2021-05-02] MEDS ORDERED: Ciprofloxacin 500 MG Tab PO ONE (22:30)
[2021-05-03] MEDS ORDERED: Ciprofloxacin 500 MG Tab PO ONE (00:34)
[2021-05-03] MEDS ORDERED: Phenazopyridine 95 MG Tab PO ONE (00:34)
[2021-05-03] MEDS ORDERED: Ciprofloxacin 500 MG Tab ONE (01:16)
[2021-05-03] MEDS ORDERED: Phenazopyridine 95 MG Tab ONE (01:17)
--- NOTE | 2021-05-03 01:18 | EDM.PDOC ---
ED HPI GENERAL MEDICAL PROBLEM - General Chief Complaint: Genitourinary Problem Stated Complaint: KIDNEY PAIN AND CANNOT PEE Time Seen by Provider: 05/03/21 00:30 Source of Information: Reports: Patient History Limitations: Reports: No Limitations - History of Present Illness INITIAL COMMENTS - FREE TEXT/NARRATIVE: difficulty with urination startign today, no nausea vomiting or weakness. voinding small amounts. low back pain bilateral - Related Data Allergies Allergy/AdvReac Type Severity Reaction Status Date / Time azithromycin [From Zithromax] Allergy Tachycardia Verified 02/28/21 00:03 Penicillins Allergy Rash Verified 02/28/21 00:03 Home Meds: Home Meds Levothyroxine 25 mcg PO ACBREAKFAST 08/22/20 [History] Metoprolol Succinate [Toprol XL] 37.5 mg PO DAILY 08/22/20 [History] Rosuvastatin [Crestor] 5 mg PO DAILY 08/22/20 [History] Latanoprost/Pf [Latanoprost 0.005% Eye Drop] 1 drop EYEBOTH BEDTIME 12/18/20 [History] Pantoprazole [ProTONIX] 40 mg PO DAILY 12/18/20 [History] Calcium Carbonate [Calcium] 500 mg PO DAILY 01/29/21 [History] Ketorolac [Acular 0.5% Ophth Soln] 1 drop EYEBOTH ASDIRECTED 01/29/21 [History] Ofloxacin [Ocuflox 0.3% Ophth Soln] 1 drop EYEBOTH ASDIRECTED 01/29/21 [History] Potassium Chloride [Klor-Con] 20 meq PO DAILY 01/29/21 [History] prednisoLONE Acetate [Prednisolone Acetate] 1 drop EYELF ASDIRECTED 01/29/21 [History] Mupirocin Oint [Bactroban Oint] 1 TOP TID 02/28/21 [History] Sulfamethoxazole/Trimethoprim [Sulfamethoxazole-Tmp Ds Tablet] 1 tab PO BID 02/28/21 [History] Past Medical History - Past Health History Medical/Surgical History: Denies Medical/Surgical History HEENT History: Reports: Cataract, Glaucoma, Impaired Vision Cardiovascular History: Reports: Blood Clots/VTE/DVT, Other (See Below) Other Cardiovascular History: Has valve problems. 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 CLOSED FRACTURE OF DISTAL END OF LEFT ULNA WITH ROUTINE HEALING SUBSEQUENT ENCOUNTER. LATERAL EPICONDYLITIS OF LEFT ELBOW Neurological History: Reports: None Psychiatric History: Reports: Other (See Below) Other Psychiatric History: HX OF ALCOHOL ABUSE Endocrine/Metabolic History: Reports: Hypothyroidism Hematologic History: Reports: Idiopathic Thrombocytopenia Immunologic History: Reports: None Oncologic (Cancer) History: Reports: None Dermatologic History: Reports: None - Infectious Disease History Infectious Disease History: Reports: Chicken Pox, Hepatitis A - Past Surgical History Head Surgeries/Procedures: Reports: None HEENT Surgical History: Reports: Cataract Surgery Cardiovascular Surgical History: Reports: Other (See Below) Other Cardiovascular Surgeries/Procedures: 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, L) lung) Respiratory Surgical History: Reports: None GI Surgical History: Reports: None Female Surgical History: Reports: None Endocrine Surgical History: Reports: None Neurological Surgical History: Reports: None Musculoskeletal Surgical History: Reports: Other (See Below) Other Musculoskeletal Surgeries/Procedures:: HX OF HAND AND TENDON SURGERY Oncologic Surgical History: Reports: None Dermatological Surgical History: Reports: None Social & Family History - Family History Family Medical History: No Pertinent Family History - Tobacco Use Tobacco Use Status *Q: Current Every Day Tobacco User Years of Tobacco use: 30 Packs/Tins Daily: 0.2 - Caffeine Use Caffeine Use: Reports: Coffee - Recreational Drug Use Recreational Drug Use: No - Living Situation & Occupation Living situation: Reports: , with Family ED ROS GENERAL - Review of Systems Review Of Systems: Comprehensive ROS is negative, except as noted in HPI. ED EXAM, RENAL/ - Physical Exam Exam: See Below Exam Limited By: No Limitations General Appearance: Alert, Anxious, Mild Distress, Thin Eye Exam: Bilateral Eye: EOMI Ears: Normal External Exam Nose: Normal Inspection Throat/Mouth: Normal Inspection Head: Atraumatic, Normocephalic Neck: Normal Inspection Respiratory/Chest: No Respiratory Distress, Lungs Clear, Normal Breath Sounds Cardiovascular: Regular Rate, Rhythm GI/Abdominal: Normal Bowel Sounds Back Exam: CVA Tenderness (L) (greater than right), CVA Tenderness (R) Psychiatric: Anxious Skin Exam: Warm, Dry, Intact, Normal Color Course - Vital Signs Last Recorded V/S: Last Vital Signs Temp 97 F 05/02/21 22:40 Pulse 80 05/02/21 22:40 Resp 16 05/02/21 22:40 BP 126/75 05/02/21 22:40 Pulse Ox 95 05/02/21 22:40 - Orders/Labs/Meds Orders: Active Orders 24 hr Category Date Time Status CULTURE URINE [RM] Stat Lab 05/02/21 23:39 Received Labs: Laboratory Tests 05/02/21 Range/Units 23:39 Urine Color Yellow (YELLOW) Urine Appearance Turbid (CLEAR) Urine pH 5.5 (5.0-9.0) Ur Specific [place] 1.015 (1.005-1.030) Urine Protein 100 H (NEGATIVE) Urine Glucose (UA) Negative (NEGATIVE) Urine Ketones Trace H (NEGATIVE) Urine Occult Blood Moderate H (NEGATIVE) Urine Nitrite Negative (NEGATIVE) Urine Bilirubin Negative (NEGATIVE) Urine Urobilinogen 0.2 (0.2-1.0) mg/dL Ur Leukocyte Esterase Small H (NEGATIVE) Urine RBC 20-30 H (0-5) /HPF Urine WBC 75-100 H (0-5/HPF) /HPF Ur Epithelial Cells Few (NOT SEEN) /HPF Amorphous Sediment Moderate H (NOT SEEN) /HPF Urine Bacteria Moderate H (0-FEW/HPF) /HPF Urine Mucus Moderate H (NOT SEEN) /LPF Meds: Medications Discontinued Medications Generic Name Dose Route Start Last Admin Trade Name Freq PRN Reason Stop Dose Admin Ciprofloxacin 500 mg 05/03/21 00:34 05/03/21 00:53 Ciprofloxacin 500 Mg Tab PO 05/03/21 00:35 500 mg ONETIME ONE Administration Phenazopyridine HCl 190 mg 05/03/21 00:34 05/03/21 00:53 Phenazopyridine 95 Mg Tab PO 05/03/21 00:35 190 mg ONETIME ONE Administration Departure - Departure Time of Disposition: 01:13 Disposition: Home, Self-Care 01 Condition: Good Clinical Impression: Pyelonephritis - Discharge Information *PRESCRIPTION DRUG MONITORING PROGRAM REVIEWED*: No *COPY OF PRESCRIPTION DRUG MONITORING REPORT IN PATIENT EMBER: No Instructions: Pyelonephritis, Adult Additional Instructions: pyridium ( uristat) 200mg every 8 hours as needed for urinary symptoms cipro 500mg twice daily for one week clinic recheck this week urgent follow up worsening fever chills nausea vomiting headache encourage fluids tylenol 500mg every 4 hours as needed for fever/ discomfort Sepsis Event Note (ED) - Evaluation Sepsis Screening Result: No Definite Risk - Focused Exam Vital Signs: Vital Signs Temp Pulse Resp BP Pulse Ox 05/02/21 22:40 97 F 80 16 126/75 95 - My Orders Last 24 Hours: My Active Orders 05/02/21 23:39 CULTURE URINE [RM] Stat - Assessment/Plan Last 24 Hours: My Active Orders 05/02/21 23:39 CULTURE URINE [RM] Stat
== END 2021-05-03 01:22 | disposition home or self-care (01) ==
LOC: DL.ED 22:29
DX: N12 Tubulo-interstitial nephritis, not specified as acute or chronic (principal); K21.9 Gastro-esophageal reflux disease without esophagitis; E03.9 Hypothyroidism, unspecified; Z86.718 Personal history of other venous thrombosis and embolism; Z79.899 Other long term (current) drug therapy; Z72.0 Tobacco use; Z88.0 Allergy status to penicillin; Z88.1 Allergy status to other antibiotic agents
CPT/HCPCS: 81001; 87086; 87088; 87186; 99284; A9270

== ENCOUNTER 2021-10-16 15:35 | Emergency (ER) | payer BC, MEDICAID ==
[2021-10-16] MEDS ORDERED: Acetaminophen/oxyCODONE 325-5 MG Tab PO ONE (15:36)
[2021-10-16] MEDS ORDERED: Doxycycline Monohydrate 100 MG Cap PO ONE (15:36)
[2021-10-16] MEDS: Bacitracin Oint 1 GM U/D Packet TOP ONE (17:36)
[2021-10-16] MEDS ORDERED: Doxycycline Monohydrate 100 MG Cap ONE (18:14)
[2021-10-16] MEDS ORDERED: Acetaminophen/oxyCODONE 325-5 MG Tab ONE (18:14)
[2021-10-19] MEDS: Bacitracin Oint 1 GM U/D Packet TOP ONE (11:43)
== END 2021-10-16 18:17 | disposition home or self-care (01) ==
LOC: DL.ED 15:35
DX: S22.32XA Fracture of one rib, left side, initial encounter for closed fracture (principal); S51.811A Laceration without foreign body of right forearm, initial encounter; S81.812A Laceration without foreign body, left lower leg, initial encounter; K21.9 Gastro-esophageal reflux disease without esophagitis; Z88.0 Allergy status to penicillin; Z88.1 Allergy status to other antibiotic agents; Z79.899 Other long term (current) drug therapy; W54.1XXA Struck by dog, initial encounter
CPT/HCPCS: 71101; 99283; A9270

== ENCOUNTER 2022-03-16 19:40 | Emergency (ER) | payer BC ==
[2022-03-16] MEDS ORDERED: LORazepam 2 MG/ML SDV IVPUSH ONE (20:37)
[2022-03-16 20:43] LABS: AMPHETAMINES,URINE NEGATIVE (NEGATIVE); BARBITURATES,URINE NEGATIVE (NEGATIVE); BENZODIAZEPINE,URINE NEGATIVE (NEGATIVE); MDMA (ECSTASY), URINE NEGATIVE (NEGATIVE); METHADONE,URINE NEGATIVE (NEGATIVE); METHAMPHETAMINES,URINE NEGATIVE (NEGATIVE); OPIATES,URINE NEGATIVE (NEGATIVE); OXYCODONE,URINE NEGATIVE (NEGATIVE); PHENCYCLIDINE,URINE NEGATIVE (NEGATIVE); TCA,URINE NEGATIVE (NEGATIVE)
[2022-03-16 20:53] LABS: CORONAVIRUS COVID-19 NAA NEGATIVE (NEGATIVE)
[2022-03-16 21:00] LABS: ANION GAP 18.3 mEq/L (7-13)
[2022-03-16] MEDS ORDERED: MVI, Adult with Vitamin K 10 ML, Folic Acid 1 MG, Thiamine 100 MG in Lactated Ringers 1... IV ONE ×4 (22:40)
[2022-03-16] MEDS ORDERED: Magnesium Sulfate/Water 2 GM in Premix Bag 1 BAG IV ONE (22:40)
[2022-03-16] MEDS ORDERED: Potassium Chloride 20 MEQ in Premix Bag 1 BAG IV ONE (23:18)
[2022-03-16] MEDS ORDERED: Iopamidol 755 Mg/ML 100 ML Bottle IVPUSH ONE (23:21)
[2022-03-17] MEDS ORDERED: LORazepam 2 MG/ML SDV IVPUSH ONE ×2 (02:11→08:19)
[2022-03-17 04:33] LABS: ANION GAP 18.2 mEq/L (7-13)
[2022-03-17] MEDS ORDERED: Potassium Chloride 20 MEQ in Premix Bag 1 BAG IV ONE (06:19)
[2022-03-17] MEDS ORDERED: cefTRIAXone 1 GM in Sodium Chloride 0.9% 50 ML IV ONE (06:20)
[2022-03-17] MEDS ORDERED: Sodium Chloride 0.9% 500 ML IV SCH (06:30)
[2022-03-17] MEDS ORDERED: Meropenem 1 GM in Sodium Chloride 0.9% 100 ML IV ONE (07:21)
[2022-03-17] MEDS ORDERED: Ketorolac 30 MG/ML SDV IVPUSH ONE (08:20)
[2022-03-17] MEDS ORDERED: Nitroglycerin/D5W 25 MG/250 ML BOTTLE IV SCH (09:45)
== END 2022-03-17 10:00 ==
LOC: DL.ED 19:40
DX: J18.9 Pneumonia, unspecified organism (principal); E87.6 Hypokalemia; E83.42 Hypomagnesemia; D69.6 Thrombocytopenia, unspecified; F10.930 Alcohol use, unspecified with withdrawal, uncomplicated; F17.210 Nicotine dependence, cigarettes, uncomplicated; Z20.822 Contact with and (suspected) exposure to COVID-19; Z88.0 Allergy status to penicillin; Z88.1 Allergy status to other antibiotic agents; Z79.899 Other long term (current) drug therapy
CPT/HCPCS: 0240U; 36415; 70450; 71045; 71260; 71275; 74177; 80053; 80305-QW; 80307; 81001; 82140; 82150; 82272; 83605; 83690; 83735; 84443; 85025; 85379; 85610; 87040; 87077; 87086; 87088; 87186; 96365; 96366; 96367; 96368; 96375; 96376; 99285; 99285-25; J0696; J1885; J2060; J2185; J3370; J3411; J3475; J3480; J3490; J7040; J7050; J7120; Q9967

== ENCOUNTER 2024-04-13 04:45 | Emergency (ER) | payer BC, MEDICAID ==
[2024-04-13] MEDS: Acetaminophen 500 MG Tab PO ONE (05:26)
[2024-04-13] MEDS: Albuterol/Ipratropium 3.0-0.5 MG/3 ML Neb Soln NEB ONE (05:26)
[2024-04-13] MEDS: Ketorolac 30 MG/ML SDV IM ONE (05:27)
== END 2024-04-13 05:36 | disposition home or self-care (01) ==
LOC: DL.ED 04:45
DX: S63.691A Other sprain of left index finger, initial encounter (principal); R06.2 Wheezing; K21.9 Gastro-esophageal reflux disease without esophagitis; E03.9 Hypothyroidism, unspecified; F17.210 Nicotine dependence, cigarettes, uncomplicated; Z88.0 Allergy status to penicillin; Z88.1 Allergy status to other antibiotic agents; Z79.890 Hormone replacement therapy; Z79.899 Other long term (current) drug therapy; X50.9XXA Other and unspecified overexertion or strenuous movements or postures, initial encounter
CPT/HCPCS: 73140; 96372; 99283; A9270; J1885; J7620-GY

== ENCOUNTER 2024-10-21 05:07 | Emergency (ER) | payer MEDICAID ==
[2024-10-21 05:49] LABS: BASOPHILS PERCENT AUTO 0.5 % (0.0-1.0); EOSINOPHILS PERCENT AUTO 0.3 % (1.0-3.0); HEMATOCRIT 37.1 % (37.0-47.0); HEMOGLOBIN 12.7 g/dL (12.0-16.0); LYMPHOCYTES PERCENT AUTO 25.8 % (20.5-50.1); MEAN CORPUSCULAR HEMOGLOBIN 34.4 pg (27.0-34.0); MEAN CORPUSCULAR HGB CONC 34.2 g/dL (33.0-35.0); MEAN CORPUSCULAR VOLUME 100.5 fL (80-100); MONOCYTES PERCENT AUTO 16.8 % (2-8); NEUTROPHILS PERCENT AUTO 56.6 % (42.2-75.2); PLATELET COUNT,PLT 32 10^3/uL (150-450); RED BLOOD CELL COUNT 3.69 10^6/uL (4.2-5.4)
[2024-10-21] MEDS: Acetaminophen 500 MG Tab PO ONE (05:49)
[2024-10-21 06:04] LABS: ALBUMIN 3.1 g/dL (3.4-5.0); ANION GAP 15.2 mEq/L (7-13); BILIRUBIN TOTAL 1.6 mg/dL (0.2-1.0); BUN/CREATININE RATIO 4.2 (No establ ref range); CALCIUM 8.6 mg/dL (8.5-10.1); CREATININE 0.72 mg/dL (0.55-1.02); EST CRCL DRUG DOSING (CG) 79.44 mL/min; POTASSIUM,K 3.2 mmol/L (3.5-5.1); PROTEIN TOTAL,TP 7.2 g/dL (6.4-8.2)
[2024-10-21 06:07] LABS: A/G RATIO 0.76
[2024-10-21] MEDS: Potassium Chloride 10 MEQ Tab.ER PO ONE (07:11)
== END 2024-10-21 07:15 | disposition home or self-care (01) ==
LOC: DL.ED 05:07
DX: S80.01XA Contusion of right knee, initial encounter (principal); K21.9 Gastro-esophageal reflux disease without esophagitis; E03.9 Hypothyroidism, unspecified; F17.210 Nicotine dependence, cigarettes, uncomplicated; Z88.0 Allergy status to penicillin; Z88.1 Allergy status to other antibiotic agents; Z79.899 Other long term (current) drug therapy; W00.0XXA Fall on same level due to ice and snow, initial encounter; Y93.9 Activity, unspecified
CPT/HCPCS: 36415; 73562; 80053; 85025; 99283; A9270